=== PATIENT | male | born 2000 | race Caucasian/White ===

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

== ENCOUNTER 2018-01-10 01:03 | Emergency (ER) | payer BC, SELFPAY ==
[2018-01-10 01:03] VITALS: BP 140/87; PULSE 140; PULSE 93; RESP 22; RESP 38; TEMP 36.9; O2SAT 97; O2SAT 98; BMI 19.6
[2018-01-10] MEDS: 0.9% Normal Saline 1,000 ML 999 ML IV (01:05)
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
[2018-01-10 01:19] VITALS: BP 122/77; PULSE 96; RESP 22; O2SAT 100
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
--- NOTE | 2018-01-10 01:45 | ED.RN ---
Addendum entered by Cecilia Bean 01/10/18 01:46: note was saved prior to end of note. per police, brown paper bags are do not need to be on pt's hands. brown paper bags taken off. Original Note: brown paper bags applied to pt's hands. per police, brown paper bags are not nesseccary
[2018-01-10 01:48] VITALS: BP 134/76; PULSE 98; RESP 22; TEMP 36.9; O2SAT 100
--- NOTE | 2018-01-10 01:48 | ED.RN ---
patient's clothed placed in a bag for police/.
== END 2018-01-10 01:36 | disposition short-term general hospital (02) ==
LOC: ED 01:13
PROVIDERS: Emergency Provider Emergency Medicine; Family Provider Pediatrics; PCP Pediatrics
DX: S75.992A Other specified injury of unspecified blood vessel at hip and thigh level, left leg, initial encounter (principal); S31.104A Unspecified open wound of abdominal wall, left lower quadrant without penetration into peritoneal cavity, initial encounter; S71.102A Unspecified open wound, left thigh, initial encounter; Z72.0 Tobacco use; X93.XXXA Assault by handgun discharge, initial encounter; Y93.89 Activity, other specified; Y92.89 Other specified places as the place of occurrence of the external cause
CPT/HCPCS: 99283; J7030; A4216

== ENCOUNTER 2019-08-02 12:32 | Emergency (ER) | payer MEDICAID, SELFPAY ==
[2019-08-02 12:33] VITALS: BP 132/76; PULSE 86; RESP 16; TEMP 36.8; O2SAT 96; BMI 21.2
--- NOTE | 2019-08-02 13:09 | EKG12_ITS ---
Test Reason : HOEHNE Blood Pressure : / mmHG Vent. Rate : 079 BPM Atrial Rate : 079 BPM P-R Int : 162 ms QRS Dur : 096 ms QT Int : 344 ms P-R-T Axes : 074 071 071 degrees QTc Int : 394 ms Normal sinus rhythm Normal ECG Confirmed by SHUN MCQUEEN, RODRIGUEZ ([id number]), research editor TIMO CORREA ([id number]) on 08/06/2019 3:44:08 PM Referred By: LALIT Confirmed By:RODRIGUEZ HOFFMANN MD
--- NOTE | 2019-08-02 13:09 | RAD_ITS ---
STUDY: X-RAY CHEST REASON FOR EXAM: Male, 18 years old. Pt with chest pain only with deep inspiration for 3 days TECHNIQUE: PA and lateral views of the chest. COMPARISON: None. FINDINGS: The lungs are clear and expanded. There is no demonstrated pleural abnormality. Normal size heart. Normal mediastinum and henrry. Normal visualized pulmonary arteries. Normal visualized aortic arch and descending thoracic aorta. Normal visualized thoracic spine. Normal visualized ribs, clavicles, and shoulders. There is no demonstrated abnormality of the visualized soft tissue structures of the upper abdomen. RAD/Chest PA and Lateral IMPRESSION: Normal x-ray examination of the chest. Electronically Signed: Chadd Chapa, at 14:01 EST , Service support ,
--- NOTE | 2019-08-02 13:12 | NURSING ---
NO OLD EKGS
--- NOTE | 2019-08-02 13:14 | ED.VIS.GEN ---
History of Present Illness Chief Complaint: Chest Pain Informant: Patient Narrative: Patient presents with a left lower chest pain for 3 days. He states it seems to be progressively getting worse. He notes it is sharp and worse with deep breathing and coughing and certain movements. However he cannot push on the ribs and make it hurt. He denies any trauma. No fevers chills upper respiratory infections. There is no personal or familial history of pulmonary embolism. He states because there is a strong family history of heart disease he wanted to be seen. He has not seen anybody for this yet. There is been no syncope or near syncope. No recent travel or surgeries. Past Medical History - Allergies and Home Meds Allergies/Adverse Reactions: Allergies No Known Allergies Allergy (Verified 08/02/19 12:37) Primary Care Physician: Kasia Arredondo MD [Primary Care Provider] - Smoking Status: Current every day smoker Review of Systems General: Denies: Chills, Fever, Sweats Eyes: Denies: Visual changes - bilaterally, Diplopia ENT: Denies: Rhinorrhea, Sore throat Cardiovascular: Reports: Chest pain. Denies: Palpitations Respiratory: Denies: Dyspnea, Cough, Dyspnea on exertion Gastrointestinal: Denies: Abdominal pain, Nausea, Vomiting, Diarrhea, Melena, Hematochezia Genitourinary: Denies: Dysuria, Hematuria, Frequency Musculoskeletal: Denies: Back pain, Extremity Pain Skin: Denies: Rash, Wounds Neurological: Denies: Headache, Weakness, Numbness Physical Exam Vital Signs/Narrative: Vital Signs Temp Pulse Resp BP Pulse Ox 08/02/19 12:33 98.2 F 86 16 132/76 H 96 General: Well nourished, Well developed, No Acute Distress Head: Normocephalic, Atraumatic Eyes: Perrl, EOMI ENT: Moist mucous membranes, No rhinorrhea Neck: Supple, Nontender Cardiovascular: Regular rate, Regular rhythm, No murmurs Respiratory: No distress, CTA bilaterally, Chest nontender Abdomen: Soft, Nontender, Nondistended, Normal bowel sounds Back: Nontender, Normal Inspection Extremities: Nontender, No edema Skin: Normal color, No rash Neurological: Alert, Oriented x3, Cranial nerves II-XII grossly intact, Normal Strength, Normal Sensation Psychological: Normal affect, Normal Mood Diagnostic/Tx/Re-eval - EKG Initial EKG Interpretation: Sinus Rhythm - EKG shows a normal sinus rhythm at a rate of 79. - Medical Decision Making CBC chemistries troponin d-dimer were normal. EKG shows a normal sinus rhythm at a rate of 79 with no concerning features of ACS. There is no features consistent with a pericarditis or myocarditis. Clinically I think the patient most likely has a pleurisy. I can write some anti-inflammatories and have him follow-up return if worsening or concerns. ED Disposition - Plan for ED Patient: Disposition: Home or Assisted Living Diagnosis: Pleurisy Instructions: Pleurisy Prescriptions: Prednisone [Deltasone] 40 mg PO DAILY #10 tab Prescription Printed Ibuprofen [Motrin] 800 mg PO TID PRN PRN #20 tab PRN Reason: pain Prescription Printed Referrals: Kasia Arredondo MD [Primary Care Provider] - 3-5 Days if not improving
--- NOTE | 2019-08-02 13:38 | ED.RN ---
PT REFUSING IV AND TORADOL.
[2019-08-02 13:48] LABS: Absolute Lymphocyte Count 2.81 X10^3/uL (0.83-4.51); Absolute Neutrophil Count 6.5 X10^3/uL (2.0-7.7); Basophil# 0.04 X10^3/uL; Basophil% 0.4 % (0-1); Eosinophils% 1.9 % (0-5); Hematocrit 48.6 % (40-54); Hemoglobin 16.6 g/dL (13.0-16.5); Lymphocyte # 2.81 X10^3/ul (4.0); Lymphocyte % 27.1 % (19-41); Mean Corp Hgb Conc 34.2 g/dL (32-36); Mean Corpuscular Hgb 30.2 pg (27.0-32.0); Mean Corpuscular Volume 88.4 fL (80-94); Mean Platelet Vol. 9.4 fl (6.2-12.0); Monocyte# 0.77 X10^3/uL; Monocyte% 7.4 % (0-10); NRBC Flagged by Analyzer 0 % (0-5); Neutrophil # 6.51 X10^3/uL (2.7-7.7); Neutrophil % 62.9 % (47-70); Platelet Count 249 K/mm3 (150-450); RBC Distribution Width CV 11.6 % (11.6-14.6); RBC Distribution Width SD 37.4 fl (35.1-43.9); White Blood Count 10.4 K/mm3 (4.4-11.0)
[2019-08-02 14:01] LABS: D-Dimer Quantitative (DVT/PE) 0.37 FEU/ug/m (0.27-0.49)
[2019-08-02 14:05] LABS: Anion Gap 3 (5-15); BUN 14 mg/dL (7-18); Calcium,Total 9.2 mg/dL (8.5-10.1); Chloride 103 mmol/L (98-107); Creatinine, Serum 1.08 mg/dL (0.70-1.30); EST Glomerular Filtration Rate 92 mL/min (>60); Est Glom Filt Rate - Afr Amer 111 mL/min (>60); Estimated Creatinine Clearance 109.88 ml/min; Glucose 77 mg/dL (74-106); Potassium 4.1 mmol/L (3.5-5.1); Sodium Level 139 mmol/L (136-145)
== END 2019-08-02 14:33 | disposition home or self-care (01) ==
PROVIDERS: Emergency Provider Emergency Medicine; PCP Pediatrics
DX: R09.1 Pleurisy (principal); F17.200 Nicotine dependence, unspecified, uncomplicated
CPT/HCPCS: 71046; 80048; 84484; 85025; 85379; 93005; 99282; A4216

== ENCOUNTER 2019-12-26 00:53 | Emergency (ER) | payer MEDICAID, SELFPAY ==
[2019-12-26 00:55] VITALS: BP 144/90; PULSE 109; RESP 16; TEMP 37; O2SAT 97; BMI 20.3
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
[2019-12-26 05:06] VITALS: BP 128/70; PULSE 78; RESP 16; O2SAT 99
== END 2019-12-26 05:07 | disposition home or self-care (01) ==
PROVIDERS: Emergency Provider Emergency Medicine; PCP Pediatrics
DX: F43.0 Acute stress reaction (principal); S69.91XA Unspecified injury of right wrist, hand and finger(s), initial encounter; F17.200 Nicotine dependence, unspecified, uncomplicated; W22.09XA Striking against other stationary object, initial encounter; Y93.89 Activity, other specified; Y92.89 Other specified places as the place of occurrence of the external cause; Y99.8 Other external cause status
CPT/HCPCS: 99282

== ENCOUNTER 2025-01-21 07:58 | Emergency (ER) | payer BC, SELFPAY ==
[2025-01-21 07:59] VITALS: PULSE 86; RESP 20; TEMP 36.6; O2SAT 99; BMI 20.5
--- NOTE | 2025-01-21 08:11 | ED.RN ---
This RN attempted to get IV started so that when pt. got orders for medications he could get them right away, pt. refused IV stick at this time.
--- NOTE | 2025-01-21 08:21 | CT_ITS ---
PROCEDURE: ABDOMEN/PELVIS WITHOUT CONT 01/21/2025 REASON FOR EXAM: Flank pain TECHNIQUE: ABDOMEN/PELVIS WITHOUT CONT Noncontrast technique limits evaluation of the abdominal and pelvic viscera. Coronal and Sagittal reconstruction series were provided. One or more dose reduction techniques were used (e.g., Automated exposure control, adjustment of the mA and/or kV according to patient size, use of iterative reconstruction technique). RADIATION DOSE SUMMARY: CTDlvol: 12.08 mGy DLP: 359.62 mGycm COMPARISON: None FINDINGS: Lung bases: Clear Liver: Normal size. No obvious mass. Gallbladder: Unremarkable Spleen: Normal size. Pancreas: Normal size. No surrounding inflammation. Adrenals: Unremarkable Kidneys: No obstructive uropathy or suspicious solid renal lesion. Bladder: Incompletely distended but otherwise unremarkable Bowel: No demonstrated obstruction, retained stool noted in the colon, no CT evidence of an acute inflammatory process. Appendix: Normal appendix seen on axial images 93 through 107 Lymph nodes: No suspicious enlarged mesenteric or retroperitoneal lymph nodes. There are scattered subcentimeter in short axis dimension mesenteric lymph nodes which can be seen with mesenteric lymphadenitis. Vasculature: Unremarkable Peritoneum / Retroperitoneum: No free fluid or air Bones: Normal CT/Abdomen/Pelvis without Cont IMPRESSION: No suspicious solid organ abnormality. Specifically, no obstructive uropathy o r suspicious solid renal lesion No free intraperitoneal fluid, air, or suspicious adenopathy, normal appendix v isualized Reading Location: [id number]
[2025-01-21] MEDS: 0.9% Normal Saline (1000mL) 1,000 ML 250 ML IV (08:32)
[2025-01-21 08:35] VITALS: BP 128/81; PULSE 62
[2025-01-21 08:44] LABS: Squamous Epithelial Cells - UA 0 SEEN /hpf (0-5)
[2025-01-21 08:50] LABS: Color, Urine Red (Yellow); Glucose, Dipstick Normal (Normal); Ketone-Dipstick Negative (Negative); Leukocyte Esterase-Dipstick 25 /ul (Negative); Nitrite-Dipstick Negative (Negative); Occult Blood-Urine 250 /ul (Negative); Protein-Dipstick 100 mg/dl (Negative); Specific Gravity, Urine 1.025 (1.002-1.030); Urine Bilirubin Dipstick Negative (Negative)
[2025-01-21 08:52] LABS: Calcium Oxalate Crystals Ur 1+ /hpf (<or=2+); Red Blood Cells-Urine 50-100 SEEN /hpf (0-5)
[2025-01-21 08:53] LABS: Mucous, Urine 1+ /hpf (<or=2+)
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
[2025-01-21 09:30] LABS: Anion Gap 13 (5-15); BUN 11 mg/dL (4-19); BUN/Creat Ratio 10.2 RATIO (10-20); Calcium,Total 9.7 mg/dL (7.6-11.0); Carbon Dioxide 25.9 mmol/L (21.0-32.0); Chloride 103 mmol/L (98-108); Estimated Creatinine Clearance 104.55 ml/min (50-250); Glucose 104 mg/dL (70-99); Potassium 4.2 mmol/L (3.3-5.1)
[2025-01-21 10:18] VITALS: BP 128/78; PULSE 80; RESP 16; TEMP 36.6; O2SAT 100
== END 2025-01-21 10:19 | disposition home or self-care (01) ==
PROVIDERS: Emergency Provider Emergency Medicine; Visit Provider Emergency Medicine
DX: R10.9 Unspecified abdominal pain (principal); R11.2 Nausea with vomiting, unspecified; R31.0 Gross hematuria; F17.210 Nicotine dependence, cigarettes, uncomplicated
CPT/HCPCS: 74176; 80048; 81001; 96361; 96374; 96375; 99282; A4216; J2405